=== PATIENT | female | born 1970 | race Caucasian/White ===

== ENCOUNTER 2020-07-26 22:12 | Inpatient (IN) | payer OTHER, SELFPAY ==
[~2020-07-26] VITALS: Ht 172.7 cm; Wt 125.2 kg
[2020-07-26 22:19] VITALS: Ht 172.7 cm; Wt 125.2 kg
--- NOTE | 2020-07-26 22:55 | NUR ---
PT REC'D FROM TRIAGE WITH 8 DAY HX COVID SX. PT REPORTS HER DTR TESTED + COVID 2 WEEKS AGO. PT REPORTS SHE BEGAN WITH SORE THROAT AND WAS TESTED SATURDAY AND REPORTS POSITIVE FOR COVID ON SATURDAY. PT REPORTS FEVER AT HOME TMAX 102. PT REPORT COUGH, FEVER, CHILLS, BODY ACHES, LOW BACK PAIN (NEW SX), PRODUCTIVE COUGH WITH POST TUSSIVE CHEST WALL PAIN, PT REPORTS DIZZINESS LIGHTHEADEDNESS DOUBLE VISION, DIAPHORESIS CHILLS, HEADACHE, PRODUCTIVE CLEAR SPUTUM, NAUSEA, DIARRHEA TODAY, JOINT PAINS STATES "I FEELS IF MY HIPS WANT TO POP OUT" + CHANGE IN SMELL AND TASTE "I HAVE NO TASTE BUDS" URINE DARK KORTNEY. PT DENIES TRAVEL OUTSIDE [place] BUT + COVID CONTACT
--- NOTE | 2020-07-26 23:00 | NUR ---
IV ESTABLISHED. PT PLACED ON MONITOR NOTED NSR WITH ECTOPY - PVCS. EKG COMPLETE AND SHOWN TO ED MD. PT SWABBED FOR GRECIA AND COVID. PT HYPOXIC ON ARRIVAL WITH SP02 90% RA PT APPLIED O2 @2LP WITH SP02 93% PLACED ON 3 LPM/NC WITH SP02 95%. LUNGS WITH POOR AERATION. PT DENIES ASTHMA OR COPD DENIES HX SMOKE OR RECREATIONAL DRUG. LAST YLENOL INTAKE 1700 WHEN TEMP WAS 102. PT REPORTS SYMPTOMS WORSENED THREE DAYS AGO WHERE SHE BEGAN WITH EXERCISE INTOLERANCE, SOB, AND , DYSPNEA WITH SHORT DISTANCE. PT ARRIVES AAOX4 SPEAKING IN FULL SENTENCES, HYPOXIC 90%, TACHYCARDIC 112-120 BPM, TACHYPNEIC RR 25-32 BPM. HOB UP STRETCHER LOW POSITION AND LOCKED, AND HOB UP 60 DEGREES FOR COMFORT
--- NOTE | 2020-07-26 23:20 | NUR ---
PT SEEN AND EXAMINED BY ED MD
[2020-07-27 00:15] LABS: BASOPHIL % 0.3 % (0-2); PLATELET COUNT 364 x10^3mcL (130-400)
[2020-07-27 00:19] LABS: RED CELL DISTRIBUTION WIDTH 20.5 % (11.5-14.5)
[2020-07-27 00:25] LABS: CALCIUM 8.5 mg/dL (8.5-10.1); CARBON DIOXIDE 26.6 mmol/L (21-32); CHLORIDE SERUM 97 mmol/L (98-107); CREATININE SERUM 0.8 mg/dL (0.6-1.0); GFR1 > 60 mL/min; GLUCOSE SERUM 176 mg/dL (74-106); POTASSIUM SERUM 3.4 mmol/L (3.5-5.1); SODIUM SERUM 135 mmol/L (136-145)
[2020-07-27 00:30] LABS: ALBUMIN 2.6 g/dL (3.4-5.0); ALKALINE PHOSPHATASE 101 U/L (46-116); ALT/SGPT 32 U/L (14-59); AST/SGOT 37 U/L (15-37); BILIRUBIN TOTAL 0.4 mg/dL (0.20-1.00); LACTIC DEHYDROGENASE (LDH) 309 U/L (100-190); TOTAL PROTEIN, SERUM 8.5 g/dL (6.4-8.2)
--- NOTE | 2020-07-27 00:44 | NUR ---
PT SITTING UPRIGHT IN GURNEY IN A POSITION OF COMFORT. PT AAO X4 SPEAKING IN CLEAR COMPLETE SENTENCES. LAB AT BEDSIDE FOR ABG DRAW.
--- NOTE | 2020-07-27 01:11 | NUR ---
REPORT CALLED TO NURSING UNIT SPOKE WITH ABDIFATAH WOODS FOR SACHIN. PT REMAINS AAOX4 SPEAKING IN FULL SENTENCES. PT REPORTS ONGOING HEADACHE AND GENERALIZED PAIN NO NEW ORDERS
--- NOTE | 2020-07-27 01:21 | NUR ---
PT MEDICATED FOR SHANNON AND FEVER WITH TYLENOL 650MG PO
[2020-07-27 02:09] LABS: UA SPECIFIC GRAVITY 1.015 (1.005-1.035); microscopic required? YES; urine erythrocyte 3+ (NEGATIVE)
[2020-07-27 04:06] VITALS: BP 132/75
[2020-07-27 05:15] VITALS: BP 106/66
--- NOTE | 2020-07-27 06:08 | NUR ---
PT IS RESTING IN BED AWAKE AND ALERT. PT REPORTS HAVING AN EPISODE OF DIARRHEA. C/O NAUSEA, ZOFRAN GIVEN. BREATHING IS EVEN AND UL ON 3 L NC, NO SOB OR ACUTE RESPIRATORY DISTRESS AT THIS TIME. REMAINS IN STABLE CONDITION. NO SIGNIFICANT CHANGES AT THIS TIME. BED AT LOWEST POSITION. CALL LIGHT IS W/IN REACH. WILL ENDORSE TO MORNING NURSE.
--- NOTE | 2020-07-27 07:10 | NUR ---
SEEN AOX4, NOT IN DISTRESS, TELE 39, NSR WITH PVC, PALPABLE PULSES, NO EDEMA, DIMINISHED BLF, 3LPM VIA NC, 96% O2 SAT, +BS, VOIDS FREELY, GENERALIZED WEAKNESS, FULL ROM, SKIN DRY AND INTACT, NO PAIN AT THIS TIME, IV INTACT AND PATENT, NO REDNESS OR SWELLING, CALL LIGHT WITHIN REACH, BED AT LOWEST POSITION , SIDE RAILS UP.
[2020-07-27 08:18] VITALS: BP 139/62
--- NOTE | 2020-07-27 08:19 | NUR ---
SPOKE WITH PHARMACIST RIVER , PER RIVER, SHE WILL PUSH ADMINISTRATION OF FLU VACCINE TO A LATER DATE 07/29/20 DUE TO PATIENT'S ON GOING SYMPTOMS.
--- NOTE | 2020-07-27 10:44 | NUR ---
PATIENT WAS IN RESTROOM , O2 SAT 70%. CALLED IN TO CHECK ON PATIENT. PER PATIENT, SHE FEELS OK AND SHE WILL GO BACK TO PUTTING ON O2 VIA NC. UPDATED DAUGHTER REGARDING STATUS OF PATIENT.
[2020-07-27 12:21] VITALS: BP 137/76
--- NOTE | 2020-07-27 13:21 | NUR ---
RECEIVED ORDER FROM (ATTENDING) TO ADD FOR I.D. CONSULT.
--- NOTE | 2020-07-27 15:53 | NUR ---
PATIENT COMPLAINED OF HEADACHE 04/29, TYLENOL PO GIVEN
[2020-07-27 16:06] VITALS: BP 133/59
--- NOTE | 2020-07-27 19:33 | NUR ---
RECIEVED PT FROM AM RN. DR BENEDICT AT NURSES STATION, PER DR BENEDICT START PT ON REMDESIVIR AND 1 UNIT CONVALESCENT PLASMA. CALLED PHARMACY, PER PHARMACY IT IS TOO LATE TO RECIEVE THE REMDESIVIR, SO ORDERED IT TO BE STARTED TOMORROW MORNING. WILL PRINT OUT CONSENT FOR PLASMA AND WILL TALK TO PT.
[2020-07-27 19:42] VITALS: BP 118/54
--- NOTE | 2020-07-27 21:23 | NUR ---
PT CONSENTED TO PLASMA TRANSFUSION. CONSENT IS SIGNED AND IN CHART. TYPE AND SCREEN COMPLETED. AWAITING PLASMA.
--- NOTE | 2020-07-28 03:26 | NUR ---
PLASMA IS CURRENTLY BEING THAWED. PT IS AWARE TRANSFUSION WILL BE INITIATED SOON. PT HAS NO QUESTIONS OR CONCERNS.
--- NOTE | 2020-07-28 04:41 | NUR ---
INITIATED PTS CONVALESCENT PLASMA TRANSFUSION. ROSALINA GONCALVES AT BEDSIDE FOR VERIFICATION AND WITNESS OF TRANSFUSION. PTS PREVITAL SIGNS STABLE. PT STABLE, NO CONCERNS OR QUESTIONS. WILL RETURN IN 15 MIN TO RECHECK VITAL SIGNS AND PROGRESS OF TRANSFUSION. CALL LIGHT IN REACH, PT ENCOURAGED TO CALL IF EXPERIENCING ANY ADVERSE EFFECTS OR STRANGE SYMPTOMS. PT AGREEABLE. WILL CONTINUE TO MONITOR.
--- NOTE | 2020-07-28 04:56 | NUR ---
15 MIN VITAL SIGNS CHECK. VITAL SIGNS STABLE, PT STABLE. NO CONCERNS AT THIS TIME. PT IS ASYMPTOMATIC. NO ADVERSE EFFECTS REPORTED. PLASMA INFUSING WELL. IV INTACT AND PATENT. INFUSION RATE INCREASED. CALL LIGHT IN REACH, PT ENCOURAGED TO USE CALL LIGHT IF NEEDING ANYTHING. PT AGREEABLE. WILL CONTINUE TO MONITOR.
[2020-07-28 05:39] VITALS: BP 139/76
--- NOTE | 2020-07-28 06:23 | NUR ---
TRANSFUSION COMPLETED. VITAL SIGNS STABLE, PT STABLE. NO CONCERNS, NO COMPLAINTS. PT ASYMPTOMATIC DID NOT HAVE ANY ADVERSE REACTIONS. PT REMAINED STABLE THROUGHOUT THE NIGHT. NO SIGNIFICANT CHANGES. CALL LIGHT IN REACH. WILL ENDORSE ALL CARE TO AM RN. WILL CONTINUE TO MONITOR.
[2020-07-28 06:48] LABS: BASOPHIL % 0.2 % (0-2); PLATELET COUNT 354 x10^3mcL (130-400)
[2020-07-28 06:56] LABS: RED CELL DISTRIBUTION WIDTH 20.6 % (11.5-14.5)
[2020-07-28 07:32] LABS: ALKALINE PHOSPHATASE 82 U/L (46-116); ALT/SGPT 24 U/L (14-59); AST/SGOT 29 U/L (15-37); BILIRUBIN TOTAL 0.43 mg/dL (0.20-1.00); CALCIUM 8.1 mg/dL (8.5-10.1); CARBON DIOXIDE 26.2 mmol/L (21-32); CHLORIDE SERUM 100 mmol/L (98-107); CREATININE SERUM 0.6 mg/dL (0.6-1.0); GFR1 > 60 mL/min; GLUCOSE SERUM 173 mg/dL (74-106); MAGNESIUM 1.9 mg/dL (1.8-2.4); POTASSIUM SERUM 3.1 mmol/L (3.5-5.1); SODIUM SERUM 136 mmol/L (136-145); TOTAL PROTEIN, SERUM 7.3 g/dL (6.4-8.2)
[2020-07-28 07:36] LABS: ALBUMIN 2.2 g/dL (3.4-5.0)
[2020-07-28 07:57] VITALS: BP 141/77
--- NOTE | 2020-07-28 08:04 | NUR ---
SPOKE WITH PT REGARDING PLAN OF CARE, PT AGREEABLE, STATED SHE FEELS BETER, ONLY BECOMES SOB UPON AMBULATING, BUT IT'S MANAGEABLE.
--- NOTE | 2020-07-28 17:04 | NUR ---
PT CONTINUES ON 3L NC, NO SOB/COUGH NOTED, RESP E/U. PT SITTING UP IN BED, WATCHING TV. CALL LIGHT IN REACH ,WILL CONTINUE TO MONITOR.
--- NOTE | 2020-07-28 17:10 | NUR ---
NO SIGNIFICANT CHANGE NOTED THROUGHOUT SHIFT. PT STATES FEELING BETTER AT THIS TIME. WILL ENDORSE CARE TO SHAKER SCREEN OPERATOR RN.
[2020-07-28 17:14] LABS: rbc morphology (normal/abnorm) ABNORMAL (NORMAL)
[2020-07-28 17:15] LABS: tear drop cell (dacryocyte) 1+
[2020-07-28 17:23] VITALS: BP 128/75
--- NOTE | 2020-07-28 18:59 | NUR ---
RECIEVED PT FROM AM RN. NO CHANGES DURING THE DAY. NO CONCERNS. CALLED INTO PTS ROOM, PT AWARE OF CHANGE OF SHIFT. WILL FOLLOW UP WITH PM ASSESSMENT AND MEDS.
[2020-07-28 20:19] VITALS: BP 118/80
--- NOTE | 2020-07-28 23:20 | NUR ---
SPOKE TO PTS FRIEND COLBY, AND PROVIDED WITH UPDATE ON PTS STATUS.
--- NOTE | 2020-07-29 05:01 | NUR ---
PT RESTING IN BED, PT STABLE IN NO ACUTE DISTRESS. CALL LIGHT IN REACH. WILL CONTINUE TO MONITOR.
[2020-07-29 05:55] VITALS: BP 116/77
[2020-07-29 06:29] LABS: BASOPHIL % 0.4 % (0-2)
--- NOTE | 2020-07-29 06:30 | NUR ---
PT RESTED WELL THROUGHOUT THE NIGHT. PT REMAINED STABLE, NO EPISODES OF ACUTE DISTRESS. ALL NEEDS WERE MET DURING THIS SHIFT. PT HAS NO CONCERNS AT THIS TIME. CALL LIGHT IN REACH. WILL CONTINUE TO MONITOR. WILL ENDORSE ALL CARE TO AM RN.
[2020-07-29 06:42] LABS: PLATELET COUNT 406 x10^3mcL (130-400); RED CELL DISTRIBUTION WIDTH 20.6 % (11.5-14.5)
--- NOTE | 2020-07-29 07:10 | NUR ---
RECEIVED PT FROM HOLLIE ROMANO. PT IS AAOX4. PT ON TELE #39. PT DENIES CHEST PAIN AT THIS TIME. PT ON 3L NC. PT DENIES SOB OR DISTRESS. IV TO LFA, CDI, PATENT, AND HEP LOCKED. ALL COMFORT AND SAFETY MEASURES IN PLACE. BED IN LOW POSITION, 2 SIDE RAILS UP. CALL LIGHT WITH IN REACH. NO PAIN OR DISCOMFORT AT THIS TIME. ALL QUESTIONS AND CONCERNS ADDRESSED. WILL CONTINUE TO MONITOR PT.
[2020-07-29 07:15] LABS: ALBUMIN 2.2 g/dL (3.4-5.0); ALKALINE PHOSPHATASE 78 U/L (46-116); ALT/SGPT 24 U/L (14-59); AST/SGOT 27 U/L (15-37); BILIRUBIN TOTAL 0.34 mg/dL (0.20-1.00); CALCIUM 8.4 mg/dL (8.5-10.1); CARBON DIOXIDE 27.9 mmol/L (21-32); CHLORIDE SERUM 101 mmol/L (98-107); CREATININE SERUM 0.6 mg/dL (0.6-1.0); GFR1 > 60 mL/min; GLUCOSE SERUM 144 mg/dL (74-106); MAGNESIUM 1.9 mg/dL (1.8-2.4); POTASSIUM SERUM 3.6 mmol/L (3.5-5.1); SODIUM SERUM 138 mmol/L (136-145); TOTAL PROTEIN, SERUM 7.3 g/dL (6.4-8.2)
[2020-07-29 08:22] VITALS: BP 128/70
--- NOTE | 2020-07-29 11:20 | NUR ---
SECOND DOSE OF REMDESIVIR GIVEN. PT REMAINS STABLE W/ ALL COMFORT AND SAFETY MEASURES IN PLACE. WILL CONTINUE TO MONITOR PT.
--- NOTE | 2020-07-29 11:30 | NUR ---
PT C/O H/A. PT GIVEN PRN TYLENOL. WILL CONTINUE TO MONITOR PT.
[2020-07-29 12:06] VITALS: BP 131/80
--- NOTE | 2020-07-29 15:40 | NUR ---
IN TO SEE PT. PT REMAINS STABLE W/ NO ACUTE CHANGES TO STATUS. WILL CONTINUE TO MONITOR PT.
[2020-07-29 16:51] VITALS: BP 138/75
--- NOTE | 2020-07-29 19:15 | NUR ---
REPORT GIVEN TO COLLIN ROMANO. PT REMAINED STABLE W/ NO ACUTE CHANGES TO STATUS. ALL QUESTIONS AND CONCERNS ADDRESSED. ALL CARES. ENDORSED.
[2020-07-29 21:33] VITALS: BP 123/65
--- NOTE | 2020-07-29 22:03 | NUR ---
Awake and verbally responsive. No respiratory distress noted. On 02 3lpm via n/c. Denies pain. Denies n/v. All due meds given. Will cont.to monitor. Call light within reach.
--- NOTE | 2020-07-30 04:27 | NUR ---
Afebrile. No significant change in condition noted. Denies pain. No SOB noted. Remained on 02 3lpm via n/c. Sating 97%. Contact/droplet isolation, proper use of PPE and good hand hygiene observed.
[2020-07-30 05:38] VITALS: BP 117/68
--- NOTE | 2020-07-30 07:30 | NUR ---
PT RECEIVED FROM OFFICE ELECTRICIAN RN. PT IS SLEEPING THIS TIME, AROUSABLE TO VERBAL STIMULI. A/Ox4. ONLY COMPLAINS OF SOB WHEN AMBULATING TO THE RESTROOM. NO PAIN THIS TIME. PT INSTRUCTED TO USE CALL LIGHT IF ASSISTANCE IS NEEDED. FLOOR IS FREE OF CLUTTER. SAFETY PRECAUTIONS IN PLACE. WILL CONTINUE TO MONITOR.
[2020-07-30 09:09] VITALS: BP 124/54
[2020-07-30 09:25] LABS: BASOPHIL % 0.3 % (0-2)
[2020-07-30 09:26] LABS: PLATELET COUNT 467 x10^3mcL (130-400); RED CELL DISTRIBUTION WIDTH 20.7 % (11.5-14.5)
[2020-07-30 09:47] LABS: ALKALINE PHOSPHATASE 80 U/L (46-116); ALT/SGPT 23 U/L (14-59); AST/SGOT 31 U/L (15-37); BILIRUBIN TOTAL 0.27 mg/dL (0.20-1.00); CALCIUM 8.4 mg/dL (8.5-10.1); CARBON DIOXIDE 25.6 mmol/L (21-32); CHLORIDE SERUM 99 mmol/L (98-107); CREATININE SERUM 0.5 mg/dL (0.6-1.0); GFR1 > 60 mL/min; GLUCOSE SERUM 282 mg/dL (74-106); MAGNESIUM 1.9 mg/dL (1.8-2.4); POTASSIUM SERUM 3.7 mmol/L (3.5-5.1); SODIUM SERUM 134 mmol/L (136-145); TOTAL PROTEIN, SERUM 7.5 g/dL (6.4-8.2)
--- NOTE | 2020-07-30 10:00 | NUR ---
PT IS AWAKE, COMFORTABLE. RT LOWERED PT O2 TO 1L NC, SPO2 97%. PT DENIES PAIN AND REPORTS SOB ONLY WHEN AMBULATING TO RESTROOM. VS STABLE. SAFETY PRECAUTIONS IN PLACE. WILL CONTINUE TO MONITOR.
[2020-07-30 10:08] LABS: ALBUMIN 2.2 g/dL (3.4-5.0)
--- NOTE | 2020-07-30 10:32 | NUR ---
PT IS COMPLAINING OF NAUSEA AND STATES SHE WANTS TO TAKE HER PRN ZOFRAN. PT IS GIVEN ZOFRAN AND AN EMESIS BAG. VS STABLE. PT DENIES PAIN AND SOB. WILL CONTINUE TO MONITOR.
--- NOTE | 2020-07-30 12:36 | NUR ---
PT IS AWAKE, ALERT. GIVEN ROBITUSSIN PRN ORDERED FOR COUGHS. VS STABLE. PT DENIES PAIN AND SOB. SAFETY PRECAUTIONS IN PLACE. WILL CONTINUE TO MONITOR.
[2020-07-30 12:40] VITALS: BP 123/73
--- NOTE | 2020-07-30 14:47 | NUR ---
PT IS ON BED, COMFORTABLE. PT STATES DECREASED COUGHING AFTER TAKING ROBITUSSIN. NO SIGNS OF PAIN AND SOB. TOLERATING 1L NC WELL, SPO2 97%. VS STABLE. SAFETY PRECAUTIONS IN PLACE. WILL CONTINUE TO MONITOR.
--- NOTE | 2020-07-30 16:00 | NUR ---
PT AWAKE, WATCHING TV COMFORTABLY. PT DENIES ANY PAIN AND SOB. TOLERATING 1L NC WELL, SPO2 OF 96%. SAFETY PRECAUTIONS IN PLACE. WILL CONTINUE TO MONITOR.
[2020-07-30 17:18] VITALS: BP 116/69
--- NOTE | 2020-07-30 17:31 | NUR ---
PT IS AWAKE, RELAXED. TOLERATING 1L NC WELL, SPO2 95%. VS STABLE. SAFETY PRECAUTIONS IN PLACE. WILL CONTINUE TO MONITOR.
[2020-07-30 20:38] VITALS: BP 122/67
--- NOTE | 2020-07-30 22:20 | NUR ---
CALLED BACK PATIENT'S COLBY SNYDER, NO ANSWER AT THIS TIME. AWAITING CALL BACK.
--- NOTE | 2020-07-31 00:42 | NUR ---
PATIENT RESTING INTERMITTENTLY WITH NO ACUTE DISTRESS NOTED, REMAINS ON 1L NC. NO ACUTE CHANGES AT THIS TIME. ALL SAFETY MEASURES IN PLACE. BED IN LOWEST POSITION, CALL LIGHT WITHIN REACH.
[2020-07-31 05:10] VITALS: BP 117/73
--- NOTE | 2020-07-31 05:50 | NUR ---
PATIENT RESTED INTERMITTENTLY THROUGHOUT THE NIGHT, ON 1L NC, DENIES CHEST PAIN AND GENERALIZED PAIN. PT IS ABLE TO AMBULATE W/O DIFFICULTY, ABLE TO USE THE RESTROOM THROUGHOUT THE NIGHT. ALL SAFETY MEASURES IN PLACE. BED IN LOWEST POSITION, CALL LIGHT WITHIN REACH.
--- NOTE | 2020-07-31 07:10 | NUR ---
RECEIVED PT FROM MIN ROMANO. PT IS AAOX4. PT ON TELE #39. PT DENIES CHEST PAIN AT THIS TIME. PT ON 1L NC. PT DENIES SOB OR DISTRESS. IV TO LFA, CDI, PATENT, AND HEP LOCKED. ALL COMFORT AND SAFETY MEASURES IN PLACE. BED IN LOW POSITION, 2 SIDE RAILS UP. CALL LIGHT WITH IN REACH. NO PAIN OR DISCOMFORT AT THIS TIME. ALL QUESTIONS AND CONCERNS ADDRESSED. WILL CONTINUE TO MONITOR PT.
--- NOTE | 2020-07-31 07:20 | NUR ---
ENDORSED CARE TO DAYSHIFT NURSE. ALL QUESTIONS/CONCERNS ADDRESSED.
[2020-07-31 07:33] LABS: BASOPHIL % 0.2 % (0-2)
[2020-07-31 07:52] LABS: ALKALINE PHOSPHATASE 86 U/L (46-116); ALT/SGPT 21 U/L (14-59); AST/SGOT 31 U/L (15-37); BILIRUBIN TOTAL 0.24 mg/dL (0.20-1.00); CALCIUM 8.6 mg/dL (8.5-10.1); CARBON DIOXIDE 27.6 mmol/L (21-32); CHLORIDE SERUM 100 mmol/L (98-107); CREATININE SERUM 0.6 mg/dL (0.6-1.0); GFR1 > 60 mL/min; GLUCOSE SERUM 365 mg/dL (74-106); POTASSIUM SERUM 3.5 mmol/L (3.5-5.1); SODIUM SERUM 135 mmol/L (136-145); TOTAL PROTEIN, SERUM 7.1 g/dL (6.4-8.2)
[2020-07-31 08:00] LABS: ALBUMIN 2.2 g/dL (3.4-5.0)
[2020-07-31 08:21] LABS: PLATELET COUNT 500 x10^3mcL (130-400); RED CELL DISTRIBUTION WIDTH 20.7 % (11.5-14.5)
[2020-07-31 09:38] VITALS: BP 133/80
--- NOTE | 2020-07-31 10:20 | NUR ---
PT C/O DISCOMFORT TO LAC. LAC IV D/C, CATHETER INTACT. DRESSING APPLIED. NEW IV STARTED TO LFA 22G. IV CDI AND PATENT. ALL QUESSTIONS AND CONCERNS ADDRESSED. WILL CONTINUE TO MONITOR PT.
[2020-07-31 12:31] VITALS: BP 110/57
[2020-07-31 15:44] VITALS: BP 120/65
--- NOTE | 2020-07-31 17:15 | NUR ---
IN TO SEE PT. PT REMAINS STABLE W/ NO ACUTE CHANGES TO STATUS. PT REMAINS ON RA. O2 SAT 94%. DENIES SOB OR DISTRESS. ALL QUESTIONS AND CONCERNS ADDRESSED. WILL CONTINUE TO MONITOR PT.
--- NOTE | 2020-07-31 19:10 | NUR ---
REPORT GIVEN TO THAD ROMANO. PT REMAINED STABLE THROUGHOUT MY SHIFT. ALL QUESTIONS AND CONCERNS ADDRESSED. ALL CARES ENDORSED.
--- NOTE | 2020-07-31 19:40 | NUR ---
RECEIVED PT IN BED RESTING QUIETLY. SHE IS ALERT,ORIENTED X4. PT ON ROOM AIR AND SHE DENIED HAVING SOB AT THIS TIME. PT STATED SHE HAS " ALITTLE BIT" OF SOB ONCE IN A WHILE. SHE HAS NO C/O PAIN. W/ HL TO LTFA. CALL LIGHT W/IN REACH.
[2020-07-31 21:52] VITALS: BP 132/76
--- NOTE | 2020-08-01 02:30 | NUR ---
PT ASLEEP AND EASILY AROUSABLE. PT ON ROOM AIR AND SHE DENIES SOB.
--- NOTE | 2020-08-01 03:45 | NUR ---
PT PROVIDED WITH SNACKS OF CRACKERS REQUESTED.
--- NOTE | 2020-08-01 05:50 | NUR ---
PT SLEPT IN LONG INTERVALS. SHE HAD NO C/O SOB AND REMAINS ON ROOM AIR. SHE HAD NO C/O PAIN. PT NOTED COUGHING ( DRY) AT TIMES. HL TO LTFA INTACT AND PATENT. ALL NEEDS ATTENDED TO.
[2020-08-01 05:53] VITALS: BP 128/71
[2020-08-01 08:13] VITALS: BP 122/71
--- NOTE | 2020-08-01 08:50 | NUR ---
SEEN IN BED AAOX4. NO RESP DISTRESS NOTED, BREATHING E/U ON ROOM AIR, O2SAT 94% ON CONTINUE PULSE OX. DENIES PAIN. NOTED WITH DRY COUGH. STATED AMBULATORY WELL TO BATHROOM. S/L FLUSHED PATENT. PLAN OF CARE DISCUSSED. AM SCHEDULED MEDS GIVEN. CALL LIGHT PLACED WITHIN EASY REACH. SIDERAILS UP X2.
[2020-08-01 12:04] VITALS: BP 136/70
[2020-08-01 12:16] LABS: BASOPHIL % 0.3 % (0-2); PLATELET COUNT 467 x10^3mcL (130-400); RED CELL DISTRIBUTION WIDTH 20.4 % (11.5-14.5)
[2020-08-01 12:23] LABS: ALKALINE PHOSPHATASE 82 U/L (46-116); ALT/SGPT 20 U/L (14-59); AST/SGOT 38 U/L (15-37); BILIRUBIN TOTAL 0.2 mg/dL (0.20-1.00); CALCIUM 8.8 mg/dL (8.5-10.1); CARBON DIOXIDE 28.8 mmol/L (21-32); CHLORIDE SERUM 101 mmol/L (98-107); CREATININE SERUM 0.7 mg/dL (0.6-1.0); GFR1 > 60 mL/min; GLUCOSE SERUM 415 mg/dL (74-106); MAGNESIUM 1.9 mg/dL (1.8-2.4); POTASSIUM SERUM 4.2 mmol/L (3.5-5.1); SODIUM SERUM 135 mmol/L (136-145); TOTAL PROTEIN, SERUM 6.8 g/dL (6.4-8.2)
[2020-08-01 12:25] LABS: ALBUMIN 2.1 g/dL (3.4-5.0)
[2020-08-01 12:37] VITALS: BP 136/70
--- NOTE | 2020-08-01 14:25 | NUR ---
DISCHARGE INSTRUCTION/PRESCRIPTION GIVEN TO PATIENT WHO IS AWAKE,ALERT,ORIENTED X4. TELEMETRY REMOVED AND RETURNED TO MT. DENIES DISCOMFORT STATED WILL BE PICKED UP BY HER COUSIN.
--- NOTE | 2020-08-01 15:06 | NUR ---
S/L TO LFA REMOVED WITH CATHETER INTACT, DRSG APPLIED. ALL PERSONAL BELONGINGS CHECKED AND KEPT WITH PATIENT. BROUGHT VIA WHEELCHAIR TO LOBBY. CONDITION STABLE UPON DISCHARGE.
== END 2020-08-01 14:20 | disposition home or self-care (01) | DRG 137 ==
LOC: ED 22:12 → DU 07-27 00:22
PROVIDERS: Emergency Medicine; ADMIT Internal Medicine; ATTEND Internal Medicine
PROC: XW033E5 Introduction of Remdesivir Anti-infective into Peripheral Vein, Percutaneous Approach, New Technology Group 5 (ICD-10-PCS; principal; 2020-07-27)
PROC: XW13325 Transfusion of Convalescent Plasma (Nonautologous) into Peripheral Vein, Percutaneous Approach, New Technology Group 5 (ICD-10-PCS; 2020-07-27)
DX: U07.1 COVID-19 (principal); J96.01 Acute respiratory failure with hypoxia; E87.3 Alkalosis; D64.9 Anemia, unspecified; D72.810 Lymphocytopenia; E87.1 Hypo-osmolality and hyponatremia; E66.9 Obesity, unspecified; J12.9 Viral pneumonia, unspecified; Z79.899 Other long term (current) drug therapy; Z79.891 Long term (current) use of opiate analgesic; Z79.01 Long term (current) use of anticoagulants; Z83.6 Family history of other diseases of the respiratory system; Z68.41 Body mass index [BMI] 40.0-44.9, adult
CPT/HCPCS: 36600; 83880; 85378; 87804; 90658; G0378; J0456; J0696; J1100; J1650; J2405; J7040; J7050; J7060; Q0092; U0003-CS